=== PATIENT | female | born 1965 | race Caucasian/White ===

== ENCOUNTER 2017-08-13 10:46 | Emergency (ER) | payer OTHER ==
--- NOTE | 2017-08-13 10:57 | ED Physician Documentation ---
General Adult - HISTORIAN Historian: patient - HPI Stated Complaint: MRSA Chief Complaint: General Adult Onset: other (the lower leg on the right has been an issue for years ) Timing: still present, worse Severity: moderate Further Comments: yes (She states that she has had the redness and drainge from bilateral lower legs for over a year after visiting [place]. She reports she now has some yellow drainge on the right lower leg and right hip for two days Denies a fever has a history of MRSA) - ROS CONST: denies: fever EYES/ENT: denies: nasal drainage CVS/RESP: denies: cough GI/: denies: vomiting, nausea MS/SKIN/LYMPH: leg swelling, rash NEURO/PSYCH: denies: dizziness, difficulty walking - PAST HX Past History: other (MRSA ) Other History: none Surgeries/Procedures: other (back and left wrist ) Immunizations: referred to PCP Allergies/Adverse Reactions: Allergies Allergy/AdvReac Type Severity Reaction Status Date / Time No Known Allergies Allergy Verified 08/13/17 10:59 Home Medications: Ambulatory Orders Medication Instructions Recorded Sulfamethoxazole/Trimethoprim 1 each PO BID #20 tab 08/13/17 [Bactrim Ds] - SOCIAL HX Smoking History: non-smoker - FAMILY HX Family History: No - VITAL SIGNS Vital Signs: Vital Signs Temp Pulse Resp BP Pulse Ox 140/84 01/30/16 19:40 - REVIEWED ASSESSMENTS Nursing Assessment Reviewed: Yes Vitals Reviewed: Yes General Adult Physical Exam - PHYSICAL EXAM GENERAL APPEARANCE: no distress EENT: eye inspection normal NECK: normal inspection RESPIRATORY: no resp distress, chest non-tender, breath sounds normal CVS: reg rate & rhythm, heart sounds normal, equal pulses, no murmur ABDOMEN: soft, no organomegaly, normal bowel sounds BACK: normal inspection SKIN: other (bilateral lower legs (knee down) with redness non pitting edema and on right lower leg with two small yellow draining areas pulses + Cap refill + . Area on right hip approx 2 cm open with yellow and green drainge noted cellulitis area around apprx 8 cm ) EXTREMITIES: non-tender NEURO: oriented X3, CN's nml as tested, motor nml Discharge Clincal Impression: MRSA (methicillin resistant Staphylococcus aureus) Prescriptions: Sulfamethoxazole/Trimethoprim [Bactrim Ds] 1 each PO BID #20 tab Referrals: Mason Moore MD [Primary Care Provider] - 2 Days Condition: Stable Disposition: 01 HOME, SELF-CARE Decision to Admit: NO Date of Decison to Admit: 08/13/17 Decision Time: 11:12
[2017-08-13 11:08] VITALS: BP 155/85
== END 2017-08-13 11:17 | disposition home or self-care (01) ==
LOC: ED 10:46
DX: A49.02 Methicillin resistant Staphylococcus aureus infection, unspecified site (principal)
CPT/HCPCS: 99283

== ENCOUNTER 2017-08-15 10:45 | Emergency (ER) | payer OTHER ==
[2017-08-15 11:14] VITALS: BP 158/79
--- NOTE | 2017-08-15 11:45 | ED Physician Documentation ---
Upper Extremity Injury - HISTORIAN Historian: patient - HPI Stated Complaint: left shoulder pain Chief Complaint: Upper Extremity Injury Additional Information: pt has chronic lt shoulder pain-carrying items last noct felt lpop now pain down to wrist and limited shoulder rom. DR ORONA had prev ordered MRI she cancelled-rec get the MRI - see DR Mcgrath for re scheduling Onset: yesterday Where: home Severity: moderate Duration: worse Modifying Factors: pain on movement - ROS CONST: no problems CVS/RESP: none NEURO: none MS/SKIN/LYMPH: none - PAST HX Past History: Rt handed, other (mrsa cellulitis) Allergies/Adverse Reactions: Allergies Allergy/AdvReac Type Severity Reaction Status Date / Time No Known Allergies Allergy Verified 08/15/17 11:14 Home Medications: Ambulatory Orders Medication Instructions Recorded Sulfamethoxazole/Trimethoprim 1 each PO BID #20 tab 08/13/17 [Bactrim Ds] - SOCIAL HX Smoking History: non-smoker Alcohol Use: none Drug Use: none - FAMILY HX Family History: no significant history - VITAL SIGNS Vital Signs: Vital Signs Temp Pulse Resp BP Pulse Ox 98.2 F 93 H 18 158/79 98 08/15/17 11:08 08/15/17 11:08 08/15/17 11:08 08/15/17 11:08 08/15/17 11:08 - REVIEWED ASSESSMENTS Nursing Assessment Reviewed: Yes Vitals Reviewed: Yes Upper Extremity Injury Physic - Physical Exam General Appearance: mild distress, moderate distress Hand: normal inspection, non-tender, no evidence of injury, normal ROM Wrist: normal inspection (radiated pain) Elbow/Forearm: normal inspection Shoulder: bone tenderness, limited ROM, soft tissue tenderness. No: normal ROM Neuro/Vascular/Tendon: no vascular compromise, motor nml, sensation nml. No: abnml color Skin: warm,dry Head/ENT: nml inspection Resp/CVS: chest non-tender, breath sounds nml, heart sounds nml, no resp. distress, lungs clear, reg. rate & rhythm Discharge Clincal Impression: acute exaberation chronic lt shoulder pa, in, hx MRSA Referrals: Mason Orona MD [Primary Care Provider] - 2 Days Comments: MEDS PLUS SEE dr orona FOR RE SCHED mri Condition: Good Disposition: 01 HOME, SELF-CARE Decision to Admit: NO Decision Time: 11:52
== END 2017-08-15 11:47 | disposition home or self-care (01) ==
LOC: ED 10:45
DX: M25.512 Pain in left shoulder (principal)
CPT/HCPCS: 99283

== ENCOUNTER → 2017-08-25 | Outpatient (CLI) | payer OTHER ==
[2017-08-15 11:14] VITALS: BP 158/79
--- NOTE | 2017-08-25 17:50 | Diagnostic Imaging Report ---
JENN CARSON [facility] [address] [facility].[address] 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 No evidence for fracture or dislocation. Acromioclavicular joint degenerative changes. No soft tissue abnormality. Impression: Acromioclavicular joint degenerative changes. No fracture. Electronically signed on Aug 25, 2017 4:40:37 PM METAL TRIM ERECTOR by: Otf BROOKS
== END ==
LOC: RAD 16:07
PROVIDERS: ATTEND Family Medicine
DX: M25.512 Pain in left shoulder (principal)
CPT/HCPCS: 73030

== ENCOUNTER 2019-05-08 15:21 | Emergency (ER) | payer OTHER ==
[2019-05-08 15:40] VITALS: BP 159/82
--- NOTE | 2019-05-08 15:56 | ED Physician Documentation ---
Lower Extremity Problem - HISTORIAN Historian: patient - HPI Stated Complaint: L Ankle pain Chief Complaint: Lower Extremity Problem Additional Information: Patient presents to the ED with a 2 week history of increasing left lower extremity swelling/redness and pain. Patient has recurrent MRSA skin infections. Location of Injury: L leg Onset: days ago (14) Timing: still present Duration: constant Where: home Severity: moderate Quality: pain, swelling, tenderness Exacerbated By: nothing Relieved By: nothing Associated Symptoms: denies: chest pain, shortness of breath, rapid heart rate - ROS CONST: no problems MS/SKIN/LYMPH: denies: calf pain CVS/RESP: denies: chest pain, shortness of breath GI/: none EYES/ENT: none NERUO/PSYCH: denies: headache - PAST HX Past History: none PE Risk Factors: none Other History: other (MRSA) Surgeries/Procedures: none Allergies/Adverse Reactions: Allergies Allergy/AdvReac Type Severity Reaction Status Date / Time No Known Drug Allergies Allergy Verified 05/08/19 15:34 Home Medications: Ambulatory Orders Medication Instructions Recorded Clindamycin HCl 300 mg PO Q6 14 Days #56 capsule 05/08/19 - SOCIAL HX Smoking History: non-smoker Alcohol Use: none Drug Use: none - FAMILY HX Family History: none - VITAL SIGNS Vital Signs: Vital Signs Temp Pulse Resp BP Pulse Ox 81 15 159/82 98 05/08/19 15:30 05/08/19 15:30 05/08/19 15:30 05/08/19 15:30 - REVIEWED ASSESSMENTS Nursing Assessment Reviewed: Yes Vitals Reviewed: Yes Lower Extremity Problem - EXAM General Appearance: no distress Hips: bilateral hip: non-tender, normal inspection, normal range of motion, no evidence of injury Legs: bilateral: non-tender, normal inspection, normal range of motion, no evidence of injury Knees: bilateral: non-tender, normal inspection, normal range of motion, no evidence of injury Ankle: bilateral: pain (L>R), soft tissue tenderness (L>R), swelling (L>R), other (redness. L>R) Foot: bilateral foot: non-tender, normal inspection, normal range of motion, no evidence of injury Neuro/Tendon: normal sensation, normal motor functions, normal tendon functions EENT: PRO RESPIRATORY: no resp distress, chest non-tender, breath sounds normal CVS: reg rate & rhythm, heart sounds normal JOINT: joints nml, nml ROM, Nml gait/weight bearing VASCULAR: no vascular compromise, pulses full/equal NEURO/PSYCH: oriented X3, CN's nml as tested SKIN: warm/dry, other (redness to both ankles L>R. Scattered pustules and lesions in various stages of healing) BACK: normal inspection Discharge Clincal Impression: MRSA cellulitis Prescriptions: Clindamycin HCl 300 mg PO Q6 14 Days #56 capsule Referrals: Mason Moore MD [Primary Care Provider] - 2 Days Additional Instructions: 1. Take Clindamycin every 6 hours until gone 2. Wash legs twice daily with antibacterial soap. 3. Some studies suggest daily application of Tea Tree Oil may be beneficial in reducing MRSA infections 4. Follow up with Dr. Moore within 1 week 5. Return to the ER for new or worsening symptoms Condition: Stable Disposition: 01 HOME, SELF-CARE Decision to Admit: NO Date of Decison to Admit: 05/08/19 Decision Time: 16:03
== END 2019-05-08 16:05 | disposition home or self-care (01) ==
LOC: ED 15:21
DX: L03.116 Cellulitis of left lower limb (principal); B95.62 Methicillin resistant Staphylococcus aureus infection as the cause of diseases classified elsewhere
CPT/HCPCS: 99281; 99284